=== PATIENT | female | born 1970 | race American Indian/Alaskan Native ===

== ENCOUNTER 2017-05-07 20:30 | Emergency (ER) | payer OTHER ==
--- NOTE | 2017-05-08 03:20 | Emergency Department Report ---
ED Female HPI - General Chief complaint: Urogenital-Female Stated complaint: PELVIC PAIN Time Seen by Provider: 05/08/17 01:50 Source: patient Mode of arrival: Ambulatory Limitations: No Limitations - History of Present Illness Initial comments: Patient is a 46 year female with no past medical history presented to the ER with a pelvic complaint. Patient reports she had an IUD placed on 04/09/2017 and since then has been having intermittent cramping, intense pelvic pressure and spotting, but for the last day she reports her spotting is increased if she possibly believes her IUD may have fallen out. Patient has never had an IUD prior to this insertion. Otherwise no fevers, chills, nausea, vomiting, diarrhea, chest pain, shortness of breath, abdominal pain, pelvic discharge, trauma, sick contacts - Related Data Previous Rx's Medication Instructions Recorded Last Taken Type Cephalexin [Keflex] 500 mg PO Q12HR #20 cap 05/08/17 Unknown Rx oxyCODONE /ACETAMINOPHEN [Percocet 1 tab PO Q4HR PRN #12 tab 05/08/17 Unknown Rx 5/325] Allergies Allergy/AdvReac Type Severity Reaction Status Date / Time No Known Allergies Allergy Unverified 10/01/16 13:40 ED Review of Systems ROS: Stated complaint: PELVIC PAIN Other details as noted in HPI ED Past Medical Hx - Past Medical History Previous Medical History?: No - Surgical History Past Surgical History?: Yes Additional Surgical History: IUD - Social History Smoking Status: Current Every Day Smoker Substance Use Type: Alcohol - Medications Home Medications: Home Medications Medication Instructions Recorded Confirmed Last Taken Type Cephalexin [Keflex] 500 mg PO Q12HR #20 cap 05/08/17 Unknown Rx oxyCODONE /ACETAMINOPHEN [Percocet 1 tab PO Q4HR PRN #12 tab 05/08/17 Unknown Rx 5/325] ED Physical Exam - General Limitations: No Limitations General appearance: alert, in no apparent distress - Head Head exam: Present: atraumatic, normocephalic - Eye Eye exam: Present: normal appearance - ENT ENT exam: Present: mucous membranes moist - Neck Neck exam: Present: normal inspection - Respiratory Respiratory exam: Present: normal lung sounds bilaterally. Absent: respiratory distress - Cardiovascular Cardiovascular Exam: Present: regular rate, normal rhythm. Absent: systolic murmur, diastolic murmur, rubs, gallop - GI/Abdominal GI/Abdominal exam: Present: soft, normal bowel sounds - External exam: Present: swelling (L sided bartholin cyst) Speculum exam: Present: other - Extremities Exam Extremities exam: Present: normal inspection, full ROM - Back Exam Back exam: Present: normal inspection - Neurological Exam Neurological exam: Present: alert, oriented X3 - Psychiatric Psychiatric exam: Present: normal affect, normal mood - Skin Skin exam: Present: warm, dry, intact, normal color. Absent: rash ED Course Vital Signs 05/07/17 05/08/17 21:41 02:01 Temperature 97.9 F Pulse Rate 108 H 92 H Respiratory 20 20 Rate Blood Pressure 129/89 Blood Pressure 132/79 [Left] O2 Sat by Pulse 100 100 Oximetry - I & D Left Medial Vagina Type of Procedure: Simple Blade Size: 10 I & D Procedure: betadine prep, gauze wick placed Progress: Lidocaine 2% 8 cc injected Bartholin cyst drained purulent liquid, packed with 1/4 inch iodoform gauze Pt tolerated the procedure well Critical care attestation.: If time is entered above; I have spent that time in minutes in the direct care of this critically ill patient, excluding procedure time. ED Disposition Clinical Impression: Bartholin cyst, Encounter for incision and drainage procedure Disposition: TO HOME OR SELFCARE Is pt being admited?: No Condition: Stable Instructions: Bartholin Cyst (ED), Incision and Drainage (ED) Additional Instructions: Return to the ER in 2 days for re-eval Prescriptions: Cephalexin [Keflex] 500 mg PO Q12HR #20 cap oxyCODONE /ACETAMINOPHEN [Percocet 5/325] 1 tab PO Q4HR PRN #12 tab PRN Reason: Pain Referrals: PRIMARY CARE, [Primary Care Provider] - 3-5 Days Forms: Work/School Release Form(ED)
[2017-05-08] MEDS ORDERED: ROXICODONE PO ONE (03:35)
[2017-05-08] MEDS ORDERED: XYLOCAINE 2% INFILTRATI ONE (03:42)
[2017-05-08 05:39] VITALS: BP 140/84
== END 2017-05-08 05:39 | disposition home or self-care (01) ==
LOC: ED 20:30
DX: N75.0 Cyst of Bartholin's gland (principal)
CPT/HCPCS: 99283

== ENCOUNTER 2017-05-10 12:27 | Emergency (ER) | payer OTHER ==
--- NOTE | 2017-05-10 15:10 | Emergency Department Report ---
Suture/Staple Removal - [facility] Chief Complaint: Skin/Abscess/Foreign Body Stated Complaint: CYST Time Seen by Provider: 05/10/17 14:41 When Sutures or July Placed: 3 days ago, I and D Wound Location: Left labia ED Review of Systems ROS: Stated complaint: CYST Other details as noted in HPI Constitutional: denies: chills, fever Gastrointestinal: other (tolerating antibiotics ). denies: nausea, vomiting Genitourinary: abnormal menses (due to recent IUD placement ), other (drainage from I and D site, L labia pain is 2/10 - pain increases with movement ) Skin: as per HPI ED Past Medical Hx - Past Medical History Previous Medical History?: No - Surgical History Past Surgical History?: No Additional Surgical History: IUD - Social History Smoking Status: Current Every Day Smoker Substance Use Type: None, Alcohol - Medications Home Medications: Home Medications Medication Instructions Recorded Confirmed Last Taken Type Cephalexin [Keflex] 500 mg PO Q12HR #20 cap 05/08/17 Unknown Rx oxyCODONE /ACETAMINOPHEN [Percocet 1 tab PO Q4HR PRN #12 tab 05/08/17 Unknown Rx 5/325] Suture Removal Exam - Exam General: Vital signs noted. No distress. Alert and acting appropriately. Wound: Yes Tenderness, Yes Drainage, Yes Pus, No Pathologic Erythema Other Systems: All other systems reviewed and are unremarkable. L labia with packing in place. small amount of drainage. ED Course Vital Signs 05/10/17 12:59 Temperature 98.0 F Pulse Rate 97 H Blood Pressure 130/90 O2 Sat by Pulse 100 Oximetry - Reevaluation(s) Reevaluation #1: 05/10/17 15:08 packing removed. site flushed with ns. no drainage. no palpable fluid collection - Pulse Oximetry Interpretation Digit-Finger Initial Pulse Oximetry Readin Actions Taken: none ED Recheck MDM - Differential Diagnosis Cutananeous Abscess reche Critical Care Time: No Critical care attestation.: If time is entered above; I have spent that time in minutes in the direct care of this critically ill patient, excluding procedure time. ED Disposition Clinical Impression: Abscess packing removal Disposition: DC-01 TO HOME OR SELFCARE Is pt being admited?: No Does the pt Need Aspirin: No Condition: Stable Instructions: Bartholin Cyst (ED), Incision and Drainage (ED) Additional Instructions: Continue your antibiotics Warm compresses/ soaks at least four times a day Follow up with your MACHINE GRAINER in 3-5 days No shaving at this time Referrals: BLANCO NATHAN PA [Primary Care Provider] - 3-5 Days Time of Disposition: 15:14
[2017-05-10 15:30] VITALS: BP 128/82
== END 2017-05-10 15:35 | disposition home or self-care (01) ==
LOC: ED 12:27
DX: Z48.817 Encounter for surgical aftercare following surgery on the skin and subcutaneous tissue (principal); Z48.01 Encounter for change or removal of surgical wound dressing

== ENCOUNTER 2019-01-10 12:43 | Outpatient (CLI) | payer OTHER ==
--- NOTE | 2019-01-10 14:54 | Mammography Report ---
BILATERAL DIGITAL SCREENING MAMMOGRAM with CAD: 01/10/19 12:43:00 CLINICAL: Routine screening. COMPARISON:10/01/16 FINDINGS: The breasts are heterogeneously dense, which may obscure small masses. Left asymmetries require additional imaging.No architectural distortion or suspicious calcifications.The right breast is negative. IMPRESSION: Left asymmetries requiring further workup. BI-RADS CATEGORY: 0 -- Additional Imaging Evaluation Required RECOMMENDATION: Recall for left ML, spot magnification MLO, CC and exaggerated CC views and left breast ultrasound if needed. ACR BI-RADS MAMMOGRAPHIC CODES: 0 = Needs additional imaging evaluation; 1 = Negative; 2 = Benign; 3 = Probably benign; 4 = Suspicious; 5 = Malignant; 6 = Known biopsy-proven malignancy COMMENT: 1. Dense breast tissue, i.e., adenosis, fibrocystic changes, etc., may obscure an underlying neoplasm. 2. Approximately 10% of cancers are not detected with mammography. 3. A negative mammography report should not delay biopsy if a clinically suspicious mass is present. COMMENT: Patient follow-up letters are generated via our [employer] application.
--- NOTE | 2019-01-10 15:01 | Mammography Report ---
BONE DEXA:01/10/19 CLINICAL: Postmenopausal. No comparison. TECHNIQUE: Two site bone DEXA performed on an [employer] scanner. FINDINGS: The average BMD of the lumbar spine L1-L4 is 1.078g/cm squared with a T-score of +0.3 and a Z-score of -0.1. The average BMD of the left hip is 0.840g/cm squared with a T-score of -0.8 and a Z-score of -1.1. The left femoral neck BMD is 0.643g/cm squared with a T score of -1.9 and a Z score of -1.9. IMPRESSION: 1. WHO classification: Normal with average fracture risk based on lumbar spine measurements. 2. WHO classification: Osteopenia with increased fracture risk based on left femoral neck measurements. 3. The FRAX 10 year fracture probability for a major osteoporotic fracture is 1.8%. 4. The FRAX 10 year fracture probability for hip fracture is 0.2%. Note: FRAX version 3.01. Fracture probability calculated for an untreated patient. Fracture probability may be lower if the patient has received treatment. RECOMMENDATION: Clinical correlation and routine screening. DEFINITIONS: BMD = Bone Mineral Density T-score = BMD related to mean peak bone mass of young adult (mean expressed in Standard Deviation) Z-score = Age matched BMD expressed in SD World Health Organization (WHO) Diagnostic Criteria Normal T-score > -1 SD Osteopenia T-score between -1 and -2.4 SD Osteoporosis T-score -2.5 SD or below NOTE: BMD is not the only risk factor for fracture; also consider factors such as the patient's age, risk of falling, previous osteoporotic fracture, family history of osteoporotic fractures, current smoker, and low body weight. All treatment decisions require clinical judgment and consideration of individual patient factors, including patient preferences, comorbidities, previous drug use and risk factors not captured in the FRAX model (e.g. frailty, falls, vitamin D deficiency, increased bone turnover, interval significant decline in BMD). Fracture probability is calculated for an untreated patient. Fracture probability may be lower if the patient has received treatment. Z-scores are not calculated if >80 years of age.
== END 2019-01-10 12:44 | disposition home or self-care (01) ==
LOC: MAMMO 12:43
PROVIDERS: ATTEND Internal Medicine
DX: Z12.31 Encounter for screening mammogram for malignant neoplasm of breast (principal); Z13.820 Encounter for screening for osteoporosis; M85.88 Other specified disorders of bone density and structure, other site; Z78.0 Asymptomatic menopausal state
CPT/HCPCS: 77067; 77080

== ENCOUNTER 2019-01-28 13:53 | Outpatient (CLI) | payer OTHER ==
--- NOTE | 2019-01-28 16:27 | Mammography Report ---
LEFT DIGITAL DIAGNOSTIC MAMMOGRAM and LEFT BREAST ULTRASOUND: 01/28/19 13:53:00 CLINICAL: Recalled for asymmetries. COMPARISON:01/10/19 screening FINDINGS: ML and spot magnification MLO, CC and exaggerated CC views were performed. Near complete effacement of asymmetries on the CC views. However, only partial effacement of asymmetries on the MLO spot. Ultrasound of left breast (including all four quadrants and the retroareolar area) was performed and demonstrated no mass, cyst or shadowing to correlate with the mammographic asymmetries. A complex cyst versus benign intramammary lymph node at 3 o'clock 3 cm from the nipple measures 9 x 4 x 6 mm. IMPRESSION: Probably benign mammographic and ultrasound findings. Recommend 6 month followup left mammogram and left breast ultrasound. BI-RADS CATEGORY: 3 - - Probably Benign ACR BI-RADS MAMMOGRAPHIC CODES: 0 = Needs additional imaging evaluation; 1 = Negative; 2 = Benign; 3 = Probably benign; 4 = Suspicious; 5 = Malignant; 6 = Known biopsy-proven malignancy COMMENT: 1. Dense breast tissue, i.e., adenosis, fibrocystic changes, etc., may obscure an underlying neoplasm. 2. Approximately 10% of cancers are not detected with mammography. 3. A negative mammography report should not delay biopsy if a clinically suspicious mass is present. COMMENT: Patient follow-up letters are generated via our [employer] application.
== END 2019-01-28 13:54 | disposition home or self-care (01) ==
LOC: MAMMO 13:53
PROVIDERS: ATTEND Internal Medicine
DX: R92.8 Other abnormal and inconclusive findings on diagnostic imaging of breast (principal); F17.200 Nicotine dependence, unspecified, uncomplicated

== ENCOUNTER 2019-07-14 10:36 | Outpatient (CLI) | payer OTHER ==
--- NOTE | 2019-07-15 11:27 | Mammography Report ---
LEFT DIGITAL DIAGNOSTIC MAMMOGRAM HISTORY: Short-term follow-up of mammographic asymmetries. TECHNIQUE: Routine views plus exaggerated CC and spot compression MLO views.] COMPARISON: 01/28/2019 mammogram and ultrasound FINDINGS: Breast Density: Heterogeneously dense breast parenchymal pattern which somewhat lessens the sensitivi ty of the evaluation. Asymmetries are no longer identified. No mass, architectural distortion or suspicious calcifications. It was determined that an ultrasound was not necessary. IMPRESSION: No mammographic evidence of malignancy. Return to routine mammographic screening. BIRADS 1: Negative. FURTHER INFORMATION: According to the [employer], yearly mammograms are recommend ed starting at age 40 and continuing as long as a woman is in good health. Clinical Breast Exams shou ld be part of a periodic health exam-about every 3 years for women in their 20s and 30s and every yea r for women 40 and over. Breast self exam is an option for women starting in their 20s. Any breast ch freddy noted on a breast self exam should be reported promptly to the patient's healthcare provider. Br east MRI is recommended for women with an approximately 20-25% or greater lifetime risk of breast can cer, including women with a strong family history of breast or ovarian cancer and women who have been treated for Hodgkin's disease. A negative Mammography report should not discourage follow up or biopsy of a clinically significant f inding and/or abnormality. Dense breast tissue may obscure small neoplasms. The patient will be entered into a reminder system with a target due date for the next screening mamm ogram. Signer Name: Markel Araiza MD Signed: 07/15/2019 11:22 AM Workstation Name: [id number]
== END 2019-07-14 10:37 | disposition home or self-care (01) ==
LOC: MAMMO 10:36
PROVIDERS: ATTEND Internal Medicine
DX: R92.8 Other abnormal and inconclusive findings on diagnostic imaging of breast (principal)